=== PATIENT | female | born 1950 | race Caucasian/White ===

== ENCOUNTER 2016-09-07 19:25 | Emergency (ER) | payer MEDICARE, OTHER ==
[~2016-09-07] VITALS: Ht 160 cm; Wt 103.4 kg
[2016-09-07] MEDS ORDERED: ASPIR-LOW81 MG PO (19:36)
[2016-09-07] MEDS ORDERED: NITROGLYCERIN0.4 MG SL (19:37)
[2016-09-07] MEDS ORDERED: LISINOPRIL20 MG PO (19:38)
[2016-09-07] MEDS ORDERED: LEXAPRO10 MG PO (19:38)
[2016-09-07] MEDS ORDERED: LIPITOR10 MG PO (19:38)
[2016-09-07] MEDS ORDERED: VENTOLIN HFA18 GM INH (19:39)
[2016-09-07] MEDS ORDERED: ALL DAY RELIEF220 MG PO (19:39)
--- NOTE | 2016-09-08 13:25 | EKG ---
[facility] [address] [place], [place] [address] Signed Normal sinus rhythm Low voltage QRS Borderline ECG No previous ECGs available Confirmed by JUSTINE DARNELL MD ([id number] on 09/08/2016 1:24:59 PM Electronically Signed By: JUSTINE DARNELL MD 09/08/16 1325 PATIENT NAME: CARLOS WOO Electrocardiogram DATE OF : 50 PHYSICIAN: JUSTINE DARNELL MD REPORT #: [id number] REPORT IS CONFIDENTIAL AND NOT TO BE RELEASED WITHOUT AUTHORIZATION
== END 2016-09-07 21:52 | disposition left against medical advice (07) ==
LOC: ED 19:25
DX: R07.89 Other chest pain (principal); J45.909 Unspecified asthma, uncomplicated; I10 Essential (primary) hypertension; Z87.891 Personal history of nicotine dependence; Z90.49 Acquired absence of other specified parts of digestive tract; Z90.710 Acquired absence of both cervix and uterus; Z88.5 Allergy status to narcotic agent; Z88.2 Allergy status to sulfonamides; Z79.82 Long term (current) use of aspirin; Z79.899 Other long term (current) drug therapy
CPT/HCPCS: 71020; 80053; 84484; 85025; 93005; 93010; 96374; 96375; 99284; J2270; J2405